=== PATIENT | female | born 1965 | race Caucasian/White ===

== ENCOUNTER 2018-02-17 15:20 | Emergency (ER) | payer SELFPAY ==
[~2018-02-17] VITALS: Ht 160 cm; Wt 70.3 kg
--- NOTE | 2018-02-17 15:52 | NUR ---
Patient discharged to home in stable conditon. Written and verbal after care instructions given. Patient verbalizes understanding of instructions. Stressed follow up.
== END 2018-02-17 15:53 | disposition home or self-care (01) ==
LOC: ER 15:21
DX: L72.0 Epidermal cyst (principal)
CPT/HCPCS: 99283; A4663

== ENCOUNTER 2022-12-07 13:50 | Emergency (ER) | payer SELFPAY ==
[~2022-12-07] VITALS: Ht 157.5 cm; Wt 65.8 kg
[2022-12-07] MEDS ORDERED: ONDANSETRON 4 MG/2 ML VIAL IV ONE (14:30)
[2022-12-07] MEDS ORDERED: MORPHINE SULFATE 2 MG/1 ML DISP.SYRIN IV ONE (14:30)
[2022-12-07] MEDS ORDERED: IV NORMAL SALINE 1000 ML BAG IV ONE (14:30)
[2022-12-07] MEDS ORDERED: ONDANSETRON 4 MG/2 ML VIAL ONE (14:35)
[2022-12-07] MEDS ORDERED: MORPHINE SULFATE 4 MG/1 ML DISP.SYRIN ONE (14:35)
[2022-12-07 14:47] LABS: HEMATOCRIT 41.8 % (31.2-41.9); MEAN CORPUSCULAR HEMOGLOBIN 27.4 uug (24.7-32.8); MEAN CORPUSCULAR VOLUME 83.3 fL (75.5-95.3); PLATELET COUNT (AUTO) 238 K/uL (179-408)
[2022-12-07 14:57] LABS: CARBON DIOXIDE 24 mmol/L (21-32); CHLORIDE 112 mmol/L (98-107); CREATININE 0.5 mg/dL (0.6-1.3); GLUCOSE 76 mg/dL (74-106); UREA NITROGEN, BLOOD 6 mg/dL (7-18)
[2022-12-07 15:05] LABS: ALANINE AMINOTRANSFERASE 33 U/L (14-59); ALKALINE PHOSPHATASE 129 U/L (50-136); ASPARTATE AMINOTRANSFERASE 10 U/L (15-37); BILIRUBIN,DIRECT 0.1 mg/dL (0.0-0.2); BILIRUBIN,TOTAL 0.6 mg/dL (0.2-1.0); LIPASE 81 U/L (73-393)
[2022-12-07 15:35] LABS: *OCCULT BLOOD STOOL NEGATIVE (NEGATIVE)
[2022-12-07] MEDS ORDERED: POTASSIUM CHLORIDE 20 MEQ TAB.PRT.SR PO ONE (15:45)
[2022-12-07] MEDS ORDERED: AMOXICILLIN-CLAVUL 875-125MG TABLET PO ONE (15:45)
[2022-12-07] MEDS ORDERED: POTASSIUM CHLORIDE 20 MEQ TAB.PRT.SR ONE (15:57)
[2022-12-07] MEDS ORDERED: AMOXICILLIN-CLAVUL 875-125MG TABLET ONE (15:57)
[2022-12-07 16:40] LABS: *BILIRUBIN,URIN NEGATIVE (NEGATIVE); *BLOOD, URINE NEGATIVE (NEGATIVE); *CLARITY,URINE CLEAR (CLEAR); *COLOR,URINE YELLOW (YELLOW); *KETONES,URINE NEGATIVE (NEGATIVE); *UROBILINOGEN,URINE 0.2 E.U./dl (NORMAL); LEUKOCYTE ESTERASE ,URINE 1+ (NEGATIVE); NITRITE, URINE NEGATIVE (NEGATIVE); PH,URINE 5.5 (5.0-8.0); UGLUCOSE NEGATIVE (NEGATIVE)
[2022-12-07 16:42] LABS: BACTERIA,URINE FEW /HPF (NONE SEEN); SQUAMOUS EPITHELIAL CELL,UR FEW /HPF (NONE SEEN)
[2022-12-07] MEDS ORDERED: AMOX-430 PO (16:50)
[2022-12-07 17:36] VITALS: BP 135/71
== END 2022-12-07 17:40 | disposition home or self-care (01) ==
LOC: ER 13:52
DX: K52.9 Noninfective gastroenteritis and colitis, unspecified (principal); E87.6 Hypokalemia; N39.0 Urinary tract infection, site not specified; I45.10 Unspecified right bundle-branch block; E83.51 Hypocalcemia; R91.1 Solitary pulmonary nodule; I72.8 Aneurysm of other specified arteries; K80.20 Calculus of gallbladder without cholecystitis without obstruction
CPT/HCPCS: 99285; 74176; 96374; 71045; 96361; 96375; 82270; 80076; 80048; 81001; 83690; 85025; 87040 ×2; 84484; 36415; 93005; 83605; J2405; J2270; J7040; A4663

== ENCOUNTER 2023-10-24 13:38 | Inpatient (IN) | payer MEDICAID ==
[~2023-10-24] VITALS: Ht 162.6 cm; Wt 63.5 kg
[~2023-10-24 13:38] MED LIST: AMOX-430 PO
[2023-10-24 15:16] LABS: BASOPHILS % (AUTO) 0.3 % (0.0-2.0); EOSINOPHILS % (AUTO) 0.4 % (0.0-7.0); HEMATOCRIT 33.3 % (31.2-41.9); HEMOGLOBIN 11.1 g/dL (10.9-14.3); LYMPHOCYTES % (AUTO) 16.2 % (20.5-51.5); MEAN CORPUSCULAR HEMOGLOBIN 27.9 uug (24.7-32.8); MEAN CORPUSCULAR HGB CONC 33 g/dL (32.3-35.6); MEAN CORPUSCULAR VOLUME 83.5 fL (75.5-95.3); MONOCYTES # (AUTO) 0.5 K/uL (0.1-1.30); MONOCYTES % (AUTO) 8.5 % (0.0-11.0); NEUTROPHILS # (AUTO) 4.8 K/uL (1.8-8.9); NEUTROPHILS % (AUTO) 74.6 % (38.5-71.5); PLATELET COUNT (AUTO) 193 K/uL (179-408); RED BLOOD CELL COUNT(AUTO) 3.99 MIL/uL (3.63-4.92); RED CELL DISTRIBUTION WIDTH 14.8 % (12.3-17.7); WHITE BLOOD COUNT (AUTO) 6.4 K/uL (3.8-11.8)
[2023-10-24 15:21] LABS: DIFFERENTIAL COMMENT 1
[2023-10-24 15:42] LABS: CALCIUM 8.8 mg/dL (8.5-10.1); CARBON DIOXIDE 28 mmol/L (21-32); CHLORIDE 102 mmol/L (98-107); CREATININE 0.7 mg/dL (0.6-1.3); GLUCOSE 98 mg/dL (74-106); POTASSIUM 4.3 mmol/L (3.5-5.1); SODIUM SERUM 137 mmol/L (136-145); UREA NITROGEN, BLOOD 7 mg/dL (7-18)
[2023-10-24 15:55] LABS: ALANINE AMINOTRANSFERASE 72 U/L (14-59); ALBUMIN 3.3 g/dL (3.4-5.0); ALKALINE PHOSPHATASE 181 U/L (50-136); ASPARTATE AMINOTRANSFERASE 55 U/L (15-37); BILIRUBIN,DIRECT 0.3 mg/dL (0.0-0.2); NT-PRO BNP 909 pg/mL (0-125); TOTAL PROTEIN, SERUM 9.4 g/dL (6.4-8.2)
[2023-10-24] MEDS ORDERED: ONDANSETRON 4 MG/2 ML VIAL ONE (18:09)
[2023-10-24] MEDS ORDERED: MORPHINE SULFATE 4 MG/1 ML DISP.SYRIN ONE (18:10)
[2023-10-24] MEDS ORDERED: MORPHINE SULFATE 4 MG/1 ML DISP.SYRIN IV ONE (18:15)
[2023-10-24] MEDS ORDERED: ONDANSETRON 4 MG/2 ML VIAL IV ONE (18:15)
[2023-10-24] MEDS ORDERED: ACETAMINOPHEN 325 MG TABLET PO PRN (20:00)
[2023-10-24] MEDS ORDERED: MAGNESIUM HYDROXIDE 30 ML LIQUID UDC PO PRN (20:00)
[2023-10-24] MEDS ORDERED: ONDANSETRON 4 MG/2 ML VIAL IV PRN (20:00)
[2023-10-24] MEDS ORDERED: TEMAZEPAM 15 MG CAPSULE PO PRN (20:00)
[2023-10-24 22:00] VITALS: BP 135/82; TEMP 102.6; O2SAT 98
[2023-10-24] MEDS ORDERED: MORPHINE SULFATE 2 MG/1 ML DISP.SYRIN IV PRN (22:00)
[2023-10-24 22:30] VITALS: TEMP 100.9
[2023-10-24 23:48] VITALS: TEMP 99.5
[2023-10-25 03:55] VITALS: BP 112/68; TEMP 98.6; O2SAT 92
[2023-10-25 06:07] LABS: BASOPHILS % (AUTO) 0.6 % (0.0-2.0); EOSINOPHILS % (AUTO) 0.3 % (0.0-7.0); HEMATOCRIT 31.8 % (31.2-41.9); HEMOGLOBIN 10.9 g/dL (10.9-14.3); LYMPHOCYTES # (AUTO) 1.3 K/uL (0.8-4.8); MEAN CORPUSCULAR HEMOGLOBIN 28.8 uug (24.7-32.8); MEAN CORPUSCULAR HGB CONC 34 g/dL (32.3-35.6); MEAN CORPUSCULAR VOLUME 83.8 fL (75.5-95.3); MONOCYTES # (AUTO) 0.6 K/uL (0.1-1.30); MONOCYTES % (AUTO) 8.4 % (0.0-11.0); NEUTROPHILS # (AUTO) 4.8 K/uL (1.8-8.9); NEUTROPHILS % (AUTO) 71.7 % (38.5-71.5); PLATELET COUNT (AUTO) 194 K/uL (179-408); RED CELL DISTRIBUTION WIDTH 14.4 % (12.3-17.7); WHITE BLOOD COUNT (AUTO) 6.6 K/uL (3.8-11.8)
[2023-10-25 06:30] LABS: ALBUMIN 2.8 g/dL (3.4-5.0); BILIRUBIN,TOTAL 0.9 mg/dL (0.2-1.0); CALCIUM 8.5 mg/dL (8.5-10.1); CREATININE 0.7 mg/dL (0.6-1.3); MAGNESIUM 2.2 mg/dL (1.8-2.4); POTASSIUM 4.2 mmol/L (3.5-5.1); TOTAL PROTEIN, SERUM 8.9 g/dL (6.4-8.2)
[2023-10-25] MEDS: PANTOPRAZOLE SODIUM 40 MG TABLET.DR PO SCH (06:36)
[2023-10-25] MEDS: HYDROCODONE/APAP 5-325MG TABLET PO PRN ×2 (06:40→19:49)
[2023-10-25 06:47] LABS: THYROID STIMULATING HORMONE 0.55 mIU/mL (0.358-3.740)
[2023-10-25 06:48] LABS: DIFFERENTIAL COMMENT 1
[2023-10-25 07:42] LABS: *RHEUMATOID FACTOR SCREEN NEGATIVE (NEGATIVE)
[2023-10-25] MEDS ORDERED: SWABABLE VALVE TRANSFER SET EA MC ONE (08:28)
[2023-10-25] MEDS ORDERED: IV NORMAL SALINE 250 ML IV ONE (08:30)
[2023-10-25] MEDS: ENOXAPARIN SODIUM 40 MG/0.4 ML DISP.SYRIN SQ SCH (08:31)
[2023-10-25] MEDS ORDERED: ASPIRIN EC 81 MG TABLET.DR PO SCH (09:00)
[2023-10-25] MEDS: IBUPROFEN 800 MG TABLET PO SCH ×2 (10:02→16:42)
[2023-10-25] MEDS: COLCHICINE 0.6 MG TABLET PO SCH (10:02)
[2023-10-25] MEDS ORDERED: IOHEXOL 350 100 ML INFUS..BTL ONE (10:13)
[2023-10-25 16:10] VITALS: BP 95/63; TEMP 98.3; O2SAT 98
[2023-10-25 20:26] VITALS: BP 150/72; TEMP 97.8; O2SAT 99
[2023-10-25] MEDS: DOCUSATE SODIUM 100 MG CAPSULE PO SCH (20:28)
[2023-10-25] MEDS: TEMAZEPAM 15 MG CAPSULE PO PRN (21:54)
[2023-10-25 22:58] VITALS: BP 103/61; TEMP 97.8; O2SAT 97
[2023-10-26] MEDS: IBUPROFEN 800 MG TABLET PO SCH ×3 (01:45→17:50)
[2023-10-26 04:48] VITALS: BP 122/67; TEMP 97.4; O2SAT 99
[2023-10-26] MEDS: PANTOPRAZOLE SODIUM 40 MG TABLET.DR PO SCH (06:05)
[2023-10-26] MEDS: ENOXAPARIN SODIUM 40 MG/0.4 ML DISP.SYRIN SQ SCH (09:07)
[2023-10-26] MEDS: COLCHICINE 0.6 MG TABLET PO SCH (09:07)
[2023-10-26 11:18] VITALS: BP 117/66; TEMP 98; O2SAT 99
[2023-10-26 15:00] VITALS: BP 124/72; TEMP 98; O2SAT 100
[2023-10-26 15:38] VITALS: BP 120/70; TEMP 98.1; O2SAT 98
[2023-10-26 20:00] VITALS: TEMP 98.6
[2023-10-26] MEDS: HYDROCODONE/APAP 5-325MG TABLET PO PRN (20:56)
[2023-10-26] MEDS: DOCUSATE SODIUM 100 MG CAPSULE PO SCH (20:56)
[2023-10-26] MEDS: TEMAZEPAM 15 MG CAPSULE PO PRN (22:04)
[2023-10-27] MEDS: IBUPROFEN 800 MG TABLET PO SCH ×2 (01:52→08:41)
[2023-10-27 04:00] VITALS: TEMP 97.9
[2023-10-27] MEDS: PANTOPRAZOLE SODIUM 40 MG TABLET.DR PO SCH (06:11)
[2023-10-27 08:00] VITALS: BP 107/63; TEMP 97.6; O2SAT 98
[2023-10-27 08:10] LABS: *ANTI-SCLERODERMA-70 AB >8.0 AI (0.0-0.9); *RNP ANTIBODIES >8.0 AI (0.0-0.9); *SJOGREN'S ANTI-SS-B <0.2 AI (0.0-0.9); *SMITH ANTIBODIES 3.4 AI (0.0-0.9); ANTI-DNA(DS) AB, QN 1 IU/mL (0-9); ANTI-NUCLEAR AB DIRECT Positive (Negative)
[2023-10-27] MEDS: COLCHICINE 0.6 MG TABLET PO SCH (08:41)
[2023-10-27] MEDS: ENOXAPARIN SODIUM 40 MG/0.4 ML DISP.SYRIN SQ SCH (08:42)
[2023-10-27] MEDS ORDERED: Colchicine PO (10:00)
[2023-10-27] MEDS ORDERED: IBUP-1953 PO ×2 (10:00)
[2023-10-27] MEDS ORDERED: PANT40TA49 PO (10:00)
[2023-10-27] MEDS ORDERED: IBUP-1957 PO (10:00)
[2023-10-27] MEDS ORDERED: IBUP-76 PO (10:00)
[2023-10-27] MEDS ORDERED: DOCU-141 PO (10:00)
[2023-10-27] MEDS ORDERED: TEMA15CA5 PO (10:09)
[2023-10-27 12:00] VITALS: BP 108/67; TEMP 97.5; O2SAT 99
[2023-10-27] MEDS ORDERED: HYDR-3980 PO (13:21)
[2023-10-28 08:11] LABS: A/G RATIO 0.6 (0.7-1.7); ALBUMIN 3.1 g/dL (2.9-4.4); ALPHA-1-GLOBULIN 0.4 g/dL (0.0-0.4); ALPHA-2-GLOBULIN 0.9 g/dL (0.4-1.0); BETA GLOBULIN 1.1 g/dL (0.7-1.3); GAMMA GLOBULIN 3.2 g/dL (0.4-1.8); GLOBULIN, TOTAL 5.6 g/dL (2.2-3.9); M-SPIKE Not Observed g/dL (Not Observed)
[2023-10-28 10:06] LABS: *PEU ALBUMIN, UR 12.8 % (.); *PEU ALPHA-2-GLOBULIN, UR 10.7 % (.); *PEU GAMMA GLOBULIN, UR 45.3 % (.); *PEU PROTEIN, TOTAL, UR 8.5 mg/dL (Not Estab.); *PEUALPHA-1-GLOBULIN, UR 2.6 % (.); *PEUBETA GLOBULIN, UR 28.7 % (.); *PEUM-SPIKE, UR 26.2 % (Not Observed)
== END 2023-10-27 13:30 | disposition home or self-care (01) | DRG 207 ==
LOC: ER 13:41 → TELE3 21:10 → MEDSURG3 10-26 10:00
PROVIDERS: ADMIT Internal Medicine; ATTEND Internal Medicine
DX: I30.9 Acute pericarditis, unspecified (principal); I21.A1 Myocardial infarction type 2; I72.8 Aneurysm of other specified arteries; E44.0 Moderate protein-calorie malnutrition; M06.9 Rheumatoid arthritis, unspecified; R50.9 Fever, unspecified; Z87.19 Personal history of other diseases of the digestive system; R79.1 Abnormal coagulation profile; R71.8 Other abnormality of red blood cells; G89.29 Other chronic pain; M54.50 Low back pain, unspecified; Z68.24 Body mass index [BMI] 24.0-24.9, adult; K70.9 Alcoholic liver disease, unspecified
CPT/HCPCS: 36415; 71045; 71275; 83550; 83735; 84100; 84155; 84165; 84166; 84443; 84484; 85025; 85651; 85730; 86038; 86140; 86430; 87040; 93005; 93307; A4606; A4663; G0378; J1650; J2270; J2405; Q9967

== ENCOUNTER 2023-11-23 15:29 | Emergency (ER) | payer MEDICAID ==
[~2023-11-23] VITALS: Ht 160 cm; Wt 63.0 kg
[~2023-11-23 15:29] MED LIST changes: -AMOX-430 PO; +Colchicine PO; +DOCU-141 PO; +HYDR-3980 PO; +IBUP-1953 PO; +IBUP-1957 PO; +IBUP-76 PO; +PANT40TA49 PO; +TEMA15CA5 PO
[2023-11-23] MEDS ORDERED: TEMA15CA5 PO (18:30)
[2023-11-23] MEDS ORDERED: PANT40TA2 PO (18:30)
[2023-11-23] MEDS ORDERED: COLC0.6C3 PO (18:30)
[2023-11-23] MEDS ORDERED: IBUP-1957 PO (18:30)
[2023-11-23] MEDS ORDERED: NAPR-1164 PO (19:01)
[2023-11-23 19:17] VITALS: BP 122/73; TEMP 98.5; O2SAT 100
== END 2023-11-23 19:18 | disposition home or self-care (01) ==
LOC: ER 15:30
DX: I80.01 Phlebitis and thrombophlebitis of superficial vessels of right lower extremity (principal); Z79.899 Other long term (current) drug therapy
CPT/HCPCS: A4606; A4663

== ENCOUNTER 2024-03-05 00:41 | Inpatient (IN) | payer MEDICAID ==
[~2024-03-05] VITALS: Ht 165.1 cm; Wt 61.2 kg
[~2024-03-05 00:41] MED LIST changes: +COLC0.6C3 PO; +NAPR-1164 PO; +PANT40TA2 PO
[2024-03-05] MEDS ORDERED: METOCLOPRAMIDE HCL 10 MG/2 ML VIAL ONE (01:14)
[2024-03-05] MEDS ORDERED: MORPHINE SULFATE 4 MG/1 ML DISP.SYRIN ONE (01:15)
[2024-03-05] MEDS: MORPHINE SULFATE 4 MG/1 ML DISP.SYRIN IV ONE ×2 (01:21→03:08)
[2024-03-05] MEDS: METOCLOPRAMIDE HCL 10 MG/2 ML VIAL IV ONE (01:21)
[2024-03-05] MEDS: IV NORMAL SALINE 500 ML BAG IV ONE (01:26)
[2024-03-05 01:29] LABS: CALCIUM 8.5 mg/dL (8.5-10.1); CARBON DIOXIDE 27 mmol/L (21-32); CHLORIDE 95 mmol/L (98-107); CREATININE 0.9 mg/dL (0.6-1.3); GLUCOSE 115 mg/dL (74-106); POTASSIUM 4.1 mmol/L (3.5-5.1); SODIUM SERUM 132 mmol/L (136-145); UREA NITROGEN, BLOOD 8 mg/dL (7-18)
[2024-03-05 01:39] LABS: BASOPHILS # (AUTO) 0.1 K/UL (0.0-0.2); BASOPHILS % (AUTO) 0.5 % (0.0-2.0); DIFFERENTIAL COMMENT 1; HEMATOCRIT 35.4 % (31.2-41.9); HEMOGLOBIN 11.9 g/dL (10.9-14.3); LYMPHOCYTES # (AUTO) 1.5 K/uL (0.8-4.8); LYMPHOCYTES % (AUTO) 12.4 % (20.5-51.5); MEAN CORPUSCULAR HEMOGLOBIN 27.7 uug (24.7-32.8); MEAN CORPUSCULAR HGB CONC 34 g/dL (32.3-35.6); MEAN CORPUSCULAR VOLUME 82.2 fL (75.5-95.3); MONOCYTES # (AUTO) 0.8 K/uL (0.1-1.30); NEUTROPHILS # (AUTO) 9.4 K/uL (1.8-8.9); NEUTROPHILS % (AUTO) 80.1 % (38.5-71.5); PLATELET COUNT (AUTO) 301 K/uL (179-408); RED BLOOD CELL COUNT(AUTO) 4.31 MIL/uL (3.63-4.92); RED CELL DISTRIBUTION WIDTH 14.7 % (12.3-17.7); WHITE BLOOD COUNT (AUTO) 11.7 K/uL (3.8-11.8)
[2024-03-05 01:42] LABS: ALANINE AMINOTRANSFERASE 18 U/L (14-59); ALBUMIN 2.9 g/dL (3.4-5.0); ALKALINE PHOSPHATASE 115 U/L (50-136); ASPARTATE AMINOTRANSFERASE 9 U/L (15-37); BILIRUBIN,DIRECT 0.3 mg/dL (0.0-0.2); BILIRUBIN,TOTAL 1.1 mg/dL (0.2-1.0); NT-PRO BNP 1698 pg/mL (0-125); TOTAL PROTEIN, SERUM 9.5 g/dL (6.4-8.2)
[2024-03-05] MEDS: ASPIRIN 81 MG TAB.CHEW PO ONE (01:50)
[2024-03-05] MEDS ORDERED: METH4TAB PO (02:37)
[2024-03-05] MEDS ORDERED: PRED2.5T PO (02:37)
[2024-03-05] MEDS ORDERED: HYDR200T81 PO (02:37)
[2024-03-05] MEDS ORDERED: FOLI1TAB27 PO (02:37)
[2024-03-05] MEDS ORDERED: CYCL5TAB PO (02:37)
[2024-03-05] MEDS ORDERED: METH2.5T PO (02:37)
[2024-03-05] MEDS ORDERED: TRAZ-182 PO (02:37)
[2024-03-05] MEDS ORDERED: HEPARIN SODIUM,PORCINE 5,000 UNITS/ML VIAL ONE (02:49)
[2024-03-05] MEDS: HEPARIN SODIUM,PORCINE/PF 500 UNIT/5 ML SYR XX ONE (03:01)
[2024-03-05] MEDS ORDERED: HEPARIN/D5W DRIP 500 ML ONE (03:43)
[2024-03-05] MEDS: HEPARIN/D5W DRIP 500 ML IV STA (04:10)
[2024-03-05] MEDS ORDERED: MORPHINE SULFATE 2 MG/1 ML DISP.SYRIN IV PRN (05:00)
[2024-03-05] MEDS ORDERED: IV NS 1000 ML 1,000 ML IV PRN (05:00)
[2024-03-05] MEDS ORDERED: ACETAMINOPHEN 325 MG TABLET PO PRN (05:00)
[2024-03-05] MEDS ORDERED: ONDANSETRON 4 MG/2 ML VIAL IV PRN (05:00)
[2024-03-05] MEDS ORDERED: NITROGLYCERIN OINT 1 GM PACKET TP ONE ×2 (05:00→09:27)
[2024-03-05] MEDS ORDERED: MAGNESIUM HYDROXIDE 30 ML LIQUID UDC PO PRN (05:00)
[2024-03-05] MEDS ORDERED: REMEDY ESSENTIAL ZINC PASTE 113 GM TP PRN (05:00)
[2024-03-05] MEDS ORDERED: NITROGLYCERIN 0.4 MG/TAB BOTTLE SL PRN (05:15)
[2024-03-05] MEDS ORDERED: HYDROMORPHONE 1 MG/1 ML DISP.SYRIN ONE (08:26)
[2024-03-05] MEDS: HYDROMORPHONE 1 MG/1 ML DISP.SYRIN IV PRN (08:26)
[2024-03-05] MEDS ORDERED: PANTOPRAZOLE SODIUM 40 MG VIAL IV SCH (09:00)
[2024-03-05] MEDS ORDERED: HYDROXYCHLOROQUINE SULFATE 200 MG TABLET PO SCH (09:00)
[2024-03-05] MEDS ORDERED: FOLIC ACID 1 MG TABLET PO SCH (09:00)
[2024-03-05] MEDS ORDERED: predniSONE 2.5 MG TABLET PO SCH (09:00)
[2024-03-05] MEDS ORDERED: METOPROLOL TARTRATE 5 MG/5 ML VIAL IVP ONE (09:26)
[2024-03-05] MEDS ORDERED: METOPROLOL TARTRATE 5 MG/5 ML VIAL IVP PRN ×2 (09:30)
[2024-03-05 09:41] VITALS: BP 112/72
[2024-03-05] MEDS: NITROGLYCERIN OINT 1 GM PACKET TP STA (09:41)
[2024-03-05] MEDS: METOPROLOL TARTRATE 5 MG/5 ML VIAL IVP STA (09:41)
[2024-03-05 10:30] VITALS: O2SAT 93
[2024-03-05] MEDS ORDERED: CYCLOBENZAPRINE HCL 10 MG TABLET PO SCH (21:00)
[2024-03-05] MEDS ORDERED: TRAZODONE 50 MG TABLET PO SCH (21:00)
[2024-03-06] MEDS ORDERED: ASPIRIN EC 81 MG TABLET.DR PO SCH (09:00)
== END 2024-03-05 10:50 | disposition short-term general hospital (02) | DRG 190 ==
LOC: ER 00:43 → TELE-TD3 08:08 → UNDODISIN 08:08
DX: I21.4 Non-ST elevation (NSTEMI) myocardial infarction (principal); K76.9 Liver disease, unspecified; R00.0 Tachycardia, unspecified; Z80.9 Family history of malignant neoplasm, unspecified; Z86.79 Personal history of other diseases of the circulatory system
CPT/HCPCS: 36415; 71045; 71250; 84484; 85025; 85730; 93005; G0378; J1170; J1644; J2270; J2765; J3490; J7040